=== PATIENT | female | born 1950 | race Caucasian/White ===

== ENCOUNTER 2018-12-10 10:19 | Emergency (ER) | payer OTHER, MEDICARE ==
[~2018-12-10] VITALS: Ht 167.6 cm; Wt 61.0 kg
[2018-12-10 10:20] VITALS: BP 148/82
[2018-12-10] MEDS ORDERED: DEXAMETHASONE 4 MG TABLET PO ONE (12:00)
[2018-12-10] MEDS ORDERED: DEXAMETHASONE 4 MG TABLET ONE (12:02)
== END 2018-12-10 12:11 | disposition home or self-care (01) ==
LOC: ED 12:05
DX: K04.7 Periapical abscess without sinus (principal); E03.9 Hypothyroidism, unspecified; F32.9 Major depressive disorder, single episode, unspecified
CPT/HCPCS: 41800; 99283